=== PATIENT | male | born 1955 | race Caucasian/White ===

== ENCOUNTER 2023-11-17 15:18 | Observation (INO) | payer OTHER ==
[~2023-11-17] VITALS: Ht 177.8 cm; Wt 72.6 kg
[2023-11-17] MEDS ORDERED: CYCL10 PO (15:27)
[2023-11-17] MEDS ORDERED: TRAZ100 PO (15:28)
[2023-11-17] MEDS ORDERED: SERT100 PO (15:28)
[2023-11-17 15:42] LABS: BASOPHILS ABSOLUTE AUTO 0.06 K/mm3 (0.00-0.23); BASOPHILS PERCENT AUTO 1 % (0-2); EOSINOPHILS ABSOLUTE AUTO 0.03 K/mm3 (0.00-0.68); EOSINOPHILS PERCENT AUTO 0 % (0-6); Hemoglobin 15.1 g/dL (13.5-17.5); IMMATURE GRAN ABSOLUTE AUTO 0.03 K/mm3 (0.00-0.10); IMMATURE GRAN PERCENT AUTO 0 % (0-1); LYMPHOCYTES ABSOLUTE AUTO 1.14 K/mm3 (0.84-5.20); LYMPHOCYTES PERCENT AUTO 13 % (21-46); MONOCYTES ABSOLUTE AUTO 0.51 K/mm3 (0.16-1.47); MONOCYTES PERCENT AUTO 6 % (4-13); Mean Corpuscular HGB 29.4 pg (26.0-34.0); Mean Corpuscular HGB Conc 32.8 g/dL (31.5-36.5); Mean Corpuscular Volume 90 fL (80-100); Mean Platelet Volume 9.1 fL (9.1-12.4); NEUTROPHILS ABSOLUTE AUTO 6.92 K/mm3 (1.96-9.15); NEUTROPHILS PERCENT AUTO 80 % (41-73); Platelet Count 394 K/mm3 (150-400); RDW Coefficient Variation 14.4 % (11.7-14.2); RDW Standard Deviation 47.3 fL (35.1-46.3); Red Blood Cell Count 5.14 M/mm3 (4.30-5.90); White Blood Cell Count 8.69 K/mm3 (4.00-11.30)
[2023-11-17 15:45] LABS: Chloride (POC) 102 mmol/L (98-108); Creatinine (POC) 0.6 mg/dL (0.8-1.3); Glucose (ISTAT POC) 156 mg/dL (70-99); Potassium (POC) 4.2 mmol/L (3.5-5.5); Sodium (POC) 141 mmol/L (135-148); Total CO2 (POC) 30 mmol/L (21-32)
[2023-11-17 15:54] LABS: International Normalized Ratio 0.93; Prothrombin Time Results 9.8 Sec (9.7-11.5)
[2023-11-17 16:01] LABS: Albumin, Blood 3.5 g/dL (3.4-5.0); Bilirubin, Total 0.6 mg/dL (0.1-1.0); Bun/Creatinine Ratio 21.6 (12.0-20.0); Calcium, Blood 8.5 mg/dL (8.5-10.1); Creatinine, Blood 0.65 mg/dL (0.60-1.20); Globulin, Blood 3.6 g/dL (2.2-4.0); Magnesium, Blood 1.9 mg/dL (1.6-2.4); Potassium, Blood 4.6 mmol/L (3.5-5.5); Total Protein, Blood 7.1 g/dL (6.4-8.2)
[2023-11-17] MEDS ORDERED: NORCO 7.5-3251 EAC1 PO (16:33)
[2023-11-17 23:26] VITALS: BP 144/100
--- NOTE | 2023-11-18 01:21 | NUR ---
ARRIVAL TO PCU: PT ARRIVED TO PCU 11 AT 2259. REPORT TAKEN FROM JEFFERY GROSS; THIS RN TO ASSUME CARE OF PT AT THAT TIME. PT ARRIVED VIA GURNEY, SLEEPING ON HIS SIDE. UPON AWAKENING, PT IS STARTLED AND UNSURE WHERE HE IS AT. PT WAS REORIENTED BY STAFF. SLID FROM GURNEY TO BED W/ STAFF ASSISTANCE. LETHARGIC BUT ANSWERING QUESTIONS APPROPRIATELY REGARDING HISTORY. FOLLOWING REORIENTATION, PT WAS ABLE TO STATE NAME, , PLACE, YEAR, AND SITUATION. PT WAS SOILED ON ARRIVAL, FULL BED BATH GIVEN IMMEDIATELY; CONDOM CATH PLACED FOR URINARY INCONTINENCE W/ CLEAN ATTENDS PLACED WELL. VSS ON ARRIVAL. HR 70'S, SINUS ON TELE. BP 144/100, PER MD NOTES PERMISSIVE HTN AT THIS TIME. SPO2 >95% ON RA. DENIES CHEST PAIN, PRESSURE, AND SOB. AFEBRILE. 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 LLE SLIGHTLY WEAKER ON ASSESSMENT WELL. PERRLA. NO UNILATERAL FACIAL DEFICITS OBSERVED. SPEECH SLOW BUT COHERANT. PT ORIENTED TO ROOM/UNIT/CALL LIGHT. EDUCATED ON CALLING STAFF FOR ANY NEEDS PRIOR TO ATTEMPTING TO GET OUT OF BED DUE TO FALL RISK. SEIZURE PADS IN PLACE ON SIDE RAILS, SUCTION SET UP AT BEDSIDE. DISCUSSED HOSPITAL IGNITION SOURCE/FIRE SAFETY POLICY. PT STATES HE IS AN EVERY DAY SMOKER, APPROX 3/4 PPD. DENIES THE NEED FOR A NICOTINE PATCH AT THIS TIME. PT DENIES HAVING ANY IGNITION SOURCES PRESENT ON ARRIVAL. NO OTHER NEEDS AT THIS TIME, CALL LIGHT WITHIN REACH. BED IN LOWEST POSITION, BED ALARM ON FOR PT SAFETY.
[2023-11-18 03:59] VITALS: BP 106/74
[2023-11-18 04:12] LABS: BASOPHILS ABSOLUTE AUTO 0.05 K/mm3 (0.00-0.23); BASOPHILS PERCENT AUTO 1 % (0-2); EOSINOPHILS ABSOLUTE AUTO 0.05 K/mm3 (0.00-0.68); EOSINOPHILS PERCENT AUTO 1 % (0-6); Hematocrit 41.6 % (37.0-53.0); Hemoglobin 13.9 g/dL (13.5-17.5); IMMATURE GRAN ABSOLUTE AUTO 0.02 K/mm3 (0.00-0.10); IMMATURE GRAN PERCENT AUTO 0 % (0-1); LYMPHOCYTES ABSOLUTE AUTO 1.52 K/mm3 (0.84-5.20); LYMPHOCYTES PERCENT AUTO 16 % (21-46); MONOCYTES ABSOLUTE AUTO 1.02 K/mm3 (0.16-1.47); MONOCYTES PERCENT AUTO 11 % (4-13); Mean Corpuscular HGB 29.6 pg (26.0-34.0); Mean Corpuscular HGB Conc 33.4 g/dL (31.5-36.5); Mean Corpuscular Volume 89 fL (80-100); Mean Platelet Volume 9.4 fL (9.1-12.4); NEUTROPHILS ABSOLUTE AUTO 6.68 K/mm3 (1.96-9.15); NEUTROPHILS PERCENT AUTO 72 % (41-73); Platelet Count 363 K/mm3 (150-400); RDW Coefficient Variation 14.3 % (11.7-14.2); RDW Standard Deviation 46.3 fL (35.1-46.3); White Blood Cell Count 9.34 K/mm3 (4.00-11.30)
[2023-11-18 04:37] LABS: Albumin, Blood 3.2 g/dL (3.4-5.0); Anion Gap 0 mmol/L (6-16); Blood Urea Nitrogen 13 mg/dL (8-24); CHOL/HDL RATIO 3.1; CO2, Blood 31 mmol/L (21-32); Calcium, Blood 8.9 mg/dL (8.5-10.1); Chloride, Blood 108 mmol/L (98-108); Cholesterol 150 mg/dL (50-200); Creatinine, Blood 0.62 mg/dL (0.60-1.20); Glomerular Filtration Rate 103 (60-); Glucose, Blood 92 mg/dL (70-99); HDL Cholesterol 49 mg/dL (>39); LDL/HDL RATIO 1.6; Low Density Lipoprotein Chol 79 mg/dL (0-110); Phosphorus, Blood 2.6 mg/dL (2.5-4.9); Sodium, Blood 139 mmol/L (136-145); Triglycerides 112 mg/dL (30-160); Very Low Density Lipoprot Chol 22 mg/dL (6-32)
--- NOTE | 2023-11-18 04:59 | NUR ---
END OF SHIFT NOTE: NO ACUTE CHANGES SINCE ARRIVAL TO PCU. PT REMAINS ALERT, ORIENTED X4; LETHARGIC BUT ABLE TO ANSWER QUESTIONS APPROPRIATELY. ABLE TO COMMUNICATE NEEDS W/ STAFF. HR 60-80'S, SINUS ARRHYTHMIA ON TELE. SBP 100-140'S, PT DENIES CHEST PAIN/PRESSURE. SPO2 >92% ON RA. NO SEIZURE ACTIVITY OBSERVED BY STAFF WHILE IN PCU. NEURO REMAINS UNCHANGED, SEE PREVIOUS NOTE. PT ABLE TO REPOSITION SELF INDEPENDENTLY. CONDOM CATH IN PLACE DRAINING TO GRAVITY, NO BM'S OVERNIGHT. NO OTHER NEEDS AT THIS TIME. PT IS RESTING IN BED W/ CALL LIGHT IN REACH. SEIZURE PRECAUTIONS REMAIN IN PLACE. BED ALARM ON FOR PT SAFETY. WILL REPORT TO ONCOMING RN.
[2023-11-18 07:48] VITALS: BP 125/93
[2023-11-18 11:24] VITALS: BP 144/91
--- NOTE | 2023-11-18 13:53 | NUR ---
MORNING SUMMARY PT HAS BEEN A&OX4, CALLS APPROPRAITELY, HAS BEEN ON RA ALL DAY AND DENIES ANY SOB. HE HAS BEEN ANGELICA 60'S-70'S ON TELE AND DENIES ANY ANGINA OR CHEST PRESSURE. HE HAD AN MRI THIS MORNING AT 0900. THE PT IS A 1P SBA W/ FWW. NO ACUTE EVENTS THIS SHIFT. HE HAS NO NUERO DEFICITS AND HAS BILATERAL EQUAL STRENGTH IN ALL EXTREMITIES. DR. 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 SEE NOTES FOR MORE INFORMATION . FIRE IGNTION RISK HAS BEEN ASSESSED. PT IS A DIALY SMOKER BUT HAS REFUSED A NICOTINE PATCH AT THIS TIME.
[2023-11-18] MEDS ORDERED: Aspir 8181 MG PO (16:22)
[2023-11-18] MEDS ORDERED: ATORVASTATIN CA80 M1 PO (16:23)
[2023-11-18] MEDS ORDERED: ALBU90OI INH (16:25)
[2023-11-18] MEDS ORDERED: LEVE500 PO (16:26)
--- NOTE | 2023-11-18 17:02 | NUR ---
DISCHARGE this rn went over discharge education with the patient and patient family. this rn went over new medications and proper use of patients inhaler. patient verbalized understanding. patient medications faxed to [email or web address]. patient left with all belongings in no distress. ICT DEVELOPER removed patients iv.
[2023-11-20 05:10] LABS: HEMOGLOBIN A1C 5.7 % (4.8-5.6)
== END 2023-11-18 16:59 | disposition home or self-care (01) ==
LOC: ER 15:18 → PCU 15:20 → ERHOLD 22:13 → PCU 22:13 → ER 22:13 → PCU 22:56 → ERHOLD 22:56 → PCU 11-18 16:59
PROVIDERS: Family Medicine; Student in an Organized Health Care Education/Training Program; ADMIT Internal Medicine
DX: G45.9 Transient cerebral ischemic attack, unspecified (principal); H70.12 Chronic mastoiditis, left ear; H65.492 Other chronic nonsuppurative otitis media, left ear; R56.9 Unspecified convulsions; Z79.82 Long term (current) use of aspirin; Z79.899 Other long term (current) drug therapy
CPT/HCPCS: 36415; 70450; 70496; 70498; 70551; 80047; 80053; 80061; 80069; 82947; 83036; 83735; 84443; 85014; 85025; 85610; 93005; 93010; 94640; 94664; 94760; 96365-59; 96367-59; 96375-59; 96376-59; 99291-25; A9270; G0378; J0692; J0696; J1170; J1650; J1953; J2060; J7050; Q9967